=== PATIENT | female | born 1995 | race Caucasian/White ===

== ENCOUNTER 2017-12-29 19:07 | Observation (INO) | payer OTHER ==
[~2017-12-29] VITALS: Ht 163 cm; Wt 80.7 kg
[2017-12-29 19:36] VITALS: BP 107/57
[2017-12-29] MEDS ORDERED: PREN1TAB89 PO (19:41)
== END 2017-12-29 21:25 | disposition home or self-care (01) ==
LOC: 4S 19:07
PROVIDERS: ADMIT Obstetrics & Gynecology; ATTEND Obstetrics & Gynecology
DX: O26.893 Other specified pregnancy related conditions, third trimester (principal); R10.9 Unspecified abdominal pain; O62.9 Abnormality of forces of labor, unspecified; Z3A.38 38 weeks gestation of pregnancy
CPT/HCPCS: 59025; G0378

== ENCOUNTER 2018-01-16 12:22 | Inpatient (IN) | payer OTHER ==
[~2018-01-16] VITALS: Ht 157 cm; Wt 83.0 kg
[~2018-01-16 12:22] MED LIST: PREN1TAB89 PO
[2018-01-16] MEDS ORDERED: OXYTOCIN 30 UNITS/LACT RINGERS 500 ML IV ONE (12:36)
[2018-01-16] MEDS ORDERED: RINGERS SOLUTION,LACTATED 1,000 ML IV PRN (12:36)
[2018-01-16] MEDS ORDERED: METOCLOPRAMIDE HCL 5 MG/ML 2 ML VIAL IVP PRN (12:45)
[2018-01-16] MEDS ORDERED: CITRIC ACID/SODIUM CITRATE 30 ML SOLUTION UDCUP PO PRN (12:45)
[2018-01-16] MEDS ORDERED: FentaNYL CITRATE-PF 100 MCG/2 ML VIAL IVP PRN (12:45)
[2018-01-16 12:58] LABS: BASOPHILS % (AUTO) 0.3 % (0.0-2.0); EOSINOPHILS % (AUTO) 0.4 % (1.0-6.0); HEMATOCRIT 32.7 % (36-46); HEMOGLOBIN 11.3 g/dL (12.0-16.0); LYMPHOCYTES # (AUTO) 1.4 K/uL (1.0-4.8); LYMPHOCYTES % (AUTO) 16.1 % (22.0-44.0); MEAN CORPUSCULAR HEMOGLOBIN 29.4 pg (26.0-34.0); MEAN CORPUSCULAR HGB CONC 34.4 G/dL (31.0-37.0); MEAN CORPUSCULAR VOLUME 86 fL (80-100); MONOCYTES # (AUTO) 0.6 K/uL (0.1-1.0); MONOCYTES % (AUTO) 7.1 % (2.0-9.0); NEUTROPHILS # (AUTO) 6.7 K/uL (1.8-7.7); NEUTROPHILS % (AUTO) 76.1 % (40.0-70.0); PLATELET COUNT (AUTO)-OB 221 K/uL (150-450); RED BLOOD CELL COUNT(AUTO) 3.83 MIL/uL (4.00-5.20); RED CELL DISTRIBUTION WIDTH 15.3 % (11.5-14.5)
[2018-01-16 13:06] VITALS: BP 103/107
[2018-01-16] MEDS ORDERED: DINOPROSTONE 10 MG VAGINAL SUPPOSITORY VG ONE (14:00)
[2018-01-16] MEDS ORDERED: AMPICILLIN SODIUM 2 GM/NS 100 ML IV ONE (14:00)
[2018-01-16] MEDS: RINGERS SOLUTION,LACTATED 1,000 ML IV SCH ×2 (14:43→22:22)
[2018-01-16] MEDS: AMPICILLIN SODIUM 1 GM/NS 50 ML IV SCH (19:31)
[2018-01-16] MEDS ORDERED: OXYGEN THERAPY IH SCH (20:00)
[2018-01-17] MEDS: AMPICILLIN SODIUM 1 GM/NS 50 ML IV SCH ×2 (00:07→04:06)
[2018-01-17] MEDS ORDERED: OXYTOCIN 30 UNITS/LACT RINGERS 500 ML IV PRN (00:27)
[2018-01-17] MEDS ORDERED: LIDOCAINE HCL/PF 1% 30 ML VIAL ONE (03:02)
[2018-01-17] MEDS ORDERED: ROPIVACAINE HCL/PF 0.2% 100 ML ED ONE (03:02)
[2018-01-17] MEDS ORDERED: ROPIVACAINE HCL/PF 0.2% 100 ML ED PRN (03:36)
[2018-01-17] MEDS ORDERED: DiphenhydrAMINE HCL 50 MG/ML VIAL IVP PRN (03:45)
[2018-01-17] MEDS ORDERED: NALBUPHINE HCL 10 MG/ML VIAL IVP PRN (03:45)
[2018-01-17] MEDS ORDERED: ONDANSETRON HCL 4 MG/2 ML VIAL IVP PRN (03:45)
[2018-01-17] MEDS: RINGERS SOLUTION,LACTATED 1,000 ML IV SCH (04:07)
[2018-01-17] MEDS ORDERED: CeFAZolin 2 GM/DEXTROSE 50 ML IV ONE ×2 (07:21→08:30)
[2018-01-17] MEDS ORDERED: GLYCERIN/WITCH HAZEL LEAF 40 PADS JAR TP PRN (08:00)
[2018-01-17] MEDS ORDERED: ACETAMINOPHEN/CODEINE 300-30 MG TABLET PO PRN ×2 (08:00)
[2018-01-17] MEDS ORDERED: BENZOCAINE 20%/MENTHOL 56 GM SPRAY CANISTER TP PRN (08:00)
[2018-01-17] MEDS ORDERED: LANOLIN 7 GM OINTMENT TP PRN (08:00)
[2018-01-17] MEDS: IBUPROFEN 800 MG TABLET PO SCH ×3 (09:47→21:26)
[2018-01-17] MEDS: MAGNESIUM HYDROXIDE SUSPENSION 30 ML UDCUP PO SCH (21:25)
[2018-01-18] MEDS: IBUPROFEN 800 MG TABLET PO SCH ×2 (03:52→10:25)
[2018-01-18] MEDS: MAGNESIUM HYDROXIDE SUSPENSION 30 ML UDCUP PO SCH (08:08)
[2018-01-18] MEDS ORDERED: IBUP-2071 PO (11:34)
[2018-01-18] MEDS ORDERED: SENNA/DOCUSATE SODIUM 187-50 MG TABLET PO ONE (11:45)
== END 2018-01-18 12:30 | disposition home or self-care (01) | DRG 775 ==
LOC: 4S 12:22 → OBSVTOIN 12:22
PROVIDERS: ADMIT Obstetrics & Gynecology; ATTEND Obstetrics & Gynecology
PROC: 10D07Z6 Extraction of Products of Conception, Vacuum, Via Natural or Artificial Opening (ICD-10-PCS; principal; 2018-01-17)
PROC: 0W8NXZZ Division of Female Perineum, External Approach (ICD-10-PCS; 2018-01-17)
PROC: 4A0HXCZ Measurement of Products of Conception, Cardiac Rate, External Approach (ICD-10-PCS; 2018-01-17)
PROC: 3E0R3BZ Introduction of Anesthetic Agent into Spinal Canal, Percutaneous Approach (ICD-10-PCS; 2018-01-17)
PROC: 00HU33Z Insertion of Infusion Device into Spinal Canal, Percutaneous Approach (ICD-10-PCS; 2018-01-17)
DX: O69.81X0 Labor and delivery complicated by cord around neck, without compression, not applicable or unspecified (principal); O76 Abnormality in fetal heart rate and rhythm complicating labor and delivery; O77.0 Labor and delivery complicated by meconium in amniotic fluid; O99.824 Streptococcus B carrier state complicating childbirth; Z3A.41 41 weeks gestation of pregnancy; Z37.0 Single live birth; Z79.899 Other long term (current) drug therapy
CPT/HCPCS: 86850; 86900; 86901; J0290; J0690; J2590; J2795; J3490; J7120